=== PATIENT | female | born 1970 | race Caucasian/White ===

== ENCOUNTER 2017-01-24 12:04 | Emergency (ER) | payer OTHER ==
[~2017-01-24] VITALS: Ht 175.3 cm; Wt 99.0 kg
[2017-01-24] MEDS ORDERED: CRESTOR5 MG PO (12:17)
[2017-01-24] MEDS ORDERED: TENORMIN25 MG PO (12:17)
[2017-01-24] MEDS ORDERED: TORADOL PO (14:02)
[2017-01-24] MEDS ORDERED: FLEXERIL PO (14:02)
[2017-01-24 14:11] VITALS: BP 128/85
== END 2017-01-24 14:19 | disposition home or self-care (01) | DRG 563 ==
LOC: ED 12:04
PROC: 2W3CX1Z Immobilization of Right Lower Arm using Splint (ICD-10-PCS; principal; 2017-01-24)
DX: S52.501A Unspecified fracture of the lower end of right radius, initial encounter for closed fracture (principal); S39.012A Strain of muscle, fascia and tendon of lower back, initial encounter; S80.01XA Contusion of right knee, initial encounter; S40.011A Contusion of right shoulder, initial encounter; S90.32XA Contusion of left foot, initial encounter; W01.198A Fall on same level from slipping, tripping and stumbling with subsequent striking against other object, initial encounter; Y93.89 Activity, other specified; Y92.211 Elementary school as the place of occurrence of the external cause